=== PATIENT | female | born 1990 | race Caucasian/White ===

== ENCOUNTER → 2025-01-17 09:14 | Outpatient (REF) | payer OTHER, SELFPAY | LOC: HWRAD 09:14 | PROVIDERS: ATTENDING PHYSICIAN Nurse Practitioner Family; FAMILY PHYSICIAN Nurse Practitioner Family | DX: Z34.81 Encounter for supervision of other normal pregnancy, first trimester (principal) | CPT/HCPCS: 76801 ==

== ENCOUNTER → 2025-01-25 10:21 | Outpatient (REF) | payer OTHER, SELFPAY | LOC: PNTC 10:21 | PROVIDERS: ATTENDING PHYSICIAN Obstetrics & Gynecology | DX: O36.80X0 Pregnancy with inconclusive fetal viability, not applicable or unspecified (principal) | CPT/HCPCS: 76801 ==

== ENCOUNTER 2025-01-27 06:27 | Day surgery (SDC) | payer OTHER, SELFPAY ==
[2025-01-27] VITALS (7 sets, daily range): BP systolic 108–133; BP diastolic 63–79; BMI 32.9
[2025-01-27] MEDS: TYLENOL 1000 MG PO (10:45)
[2025-01-27] MEDS: NORMOSOL-R/PLASMALYTE-A 1000 IV (10:50)
[2025-01-27] MEDS: VIBRAMYCIN 270 MG IV (10:53)
[2025-01-27 11:10] LABS: Hematocrit 36.7 % (37.0-47.0); Hemoglobin 12.8 g/dL (12.0-16.0)
[2025-01-27] MEDS: DILAUDID 0.5 MG IV ×2 (12:01→12:16)
--- NOTE | 2025-01-27 12:04 | W.IMMPOSTOP ---
Surgical Immed Post Op Note
-
Primary Surgeon: MD Sage
Assisting Surgeon: N/A
Pre-op Diagnosis: missed AB 11w
Post-op Diagnosis: missed AB 11w
Procedure Performed: D&E
Anesthesia Type: TIVA
Specimen / Cultures: Products of conception
Estimated Blood Loss: 10cc
Complications: none
Operative Findings: normal external female genitalia, vagina without erythema or masses, cervix dilated 1cm, anteverted uterus, minimal bleeding after uterine evacuation with 4 passes.
[2025-01-27] MEDS: TORADOL 15 MG IV (12:35)
--- NOTE | 2025-01-27 18:14 | OR.RPT ---
Operative Report
Operative Report
Patient: Angeles Malik
: 1990

Date of surgery: 01/27/2025
Preoperative diagnosis:
1. Missed at 11w
Postoperative diagnosis: Same as above
Procedure: Dilation and Evacuation
Surgeon: Quiana Cazares MD
EBL: 10 cc
Urine output: 300 cc
Findings: Normal-appearing external female genitalia. Vagina without masses or erythema. Cervix appears normal and is 1cm dilated. Anteverted 11w uterus on bimanual exam.
Complications: None
Description of procedure
Patient was taken to the OR where a time out was performed to confirm correct patient and correct procedure. Total intravenous anesthesia was administered and the patient was positioned on the OR table in the dorsolithotomy position. All pressure
points were padded and a Hilda hugger was placed to maintain control of core body temperature. A bimanual exam was performed and the uterus was noted to be 11 weeks in size and anteverted with normal consistency and no palpable adnexal masses or
fullness. The patient was prepped and draped in the usual sterile fashion.
Operative technique
A straight catheter was introduced into the bladder which was drained of 300 cc of clear urine. A weighted speculum was inserted into the vagina and a double-sided retractor was used to visualize the anterior lip of the cervix, which was then
grasped with a single-tooth tenaculum. The cervix was serially dilated to accommodate the introduction of the 11 mm suction curette.
The 11 mm curved suction curette was introduced into the uterine cavity to the fundus. Suction was applied and curetting was performed by rotating curette 360 degrees as it was withdrawn from the uterus. Suction was released prior to reaching the
cervical os. This was done for a total of 4 passes with tissue obtained on each pass. Products of conception was obtained and sent for pathology and genetics.
The single-tooth tenaculum was removed from the anterior lip of the cervix. Good hemostasis was confirmed at the tenaculum puncture sites. Weighted speculum was then removed from the vagina.
At the conclusion of the procedure, all needle, sponge, and instrument counts were noted to be correct x 2. Patient tolerated the procedure well and was transferred to PACU in stable condition prior to discharge with follow-up in 2 weeks.
== END 2025-01-27 13:40 | disposition home or self-care (01) ==
LOC: SDS 06:27
PROVIDERS: ATTENDING PHYSICIAN Obstetrics & Gynecology
DX: O02.1 Missed abortion (principal); N85.4 Malposition of uterus; Z3A.11 11 weeks gestation of pregnancy
CPT/HCPCS: 59820; 85014; 85018; 86850; 86900; 86901; 88305